=== PATIENT | female | born 1945 | race Two or more races ===

== ENCOUNTER 2023-02-03 05:03 | Day surgery (SDC) | payer OTHER ==
[~2023-02-03] VITALS: Ht 154.9 cm; Wt 59.0 kg
[~2023-02-03 05:03] MED LIST: LIPITOR20 MG PO; NORVASC5 MG PO; SYNTHROID50 MCG PO
[2023-02-03] MEDS ORDERED: IBU600 MG PO (08:40)
== END 2023-02-03 12:15 | disposition home or self-care (01) ==
LOC: CIR.AMB 05:03
PROVIDERS: ATTEND Obstetrics & Gynecology Gynecology
DX: N84.0 Polyp of corpus uteri (principal); N84.1 Polyp of cervix uteri; Z20.822 Contact with and (suspected) exposure to COVID-19